=== PATIENT | male | born 1950 | race Hispanic/Latino ===

== ENCOUNTER → 2020-01-20 | Outpatient (CLI) | payer BC, MEDICARE | END | disposition home or self-care (01) | LOC: OIH 13:38 | PROVIDERS: ATTEND Internal Medicine | DX: M19.042 Primary osteoarthritis, left hand (principal); M19.041 Primary osteoarthritis, right hand; M21.072 Valgus deformity, not elsewhere classified, left ankle; M19.072 Primary osteoarthritis, left ankle and foot; M21.071 Valgus deformity, not elsewhere classified, right ankle; M19.071 Primary osteoarthritis, right ankle and foot; M47.898 Other spondylosis, sacral and sacrococcygeal region; M47.816 Spondylosis without myelopathy or radiculopathy, lumbar region; M25.78 Osteophyte, vertebrae; M06.4 Inflammatory polyarthropathy | CPT/HCPCS: 72100; 72202; 73130; 73630 ==